=== PATIENT | female | born 1955 | race Caucasian/White ===

== ENCOUNTER 2018-05-25 17:55 | Inpatient (IN) | payer MEDICARE, OTHER, MEDICAID ==
[2018-05-25] MEDS: KETOROLAC 30 MG INJ IM (19:56)
[2018-05-25] MEDS: LORAZEPAM 0.5 MG TAB PO (20:10)
[2018-05-25] MEDS: morphine 4 MG/ML VIAL IV (21:44)
[2018-05-25] MEDS: ONDANSETRON 4 MG INJ IV (21:44)
[2018-05-25] MEDS: SOD CHLORIDE 0.9% 500 ML IV (21:45)
[2018-05-25 22:32] LABS: ADD MAN DIFF? NO
[2018-05-25 22:37] LABS: WHITE BLOOD COUNT 11.1 10^3/ul (4.8-10.8)
[2018-05-25 22:37] LABS: BASOPHILS % 0.2 % (0.0-2.0); HEMATOCRIT 33.9 % (37.0-47.0); HEMOGLOBIN 11.3 g/dl (12.0-16.0); LYMPHOCYTES # 0.8 10^3/ul (0.8-2.9); LYMPHOCYTES % 6.8 % (15.0-51.0); MEAN CORPUSCULAR HEMOGLOBIN 29.3 pg (29.0-33.0); MEAN CORPUSCULAR HGB CONC 33.3 g/dl (32.0-37.0); MEAN CORPUSCULAR VOLUME 87.8 fl (82.0-101.0); MEAN PLATELET VOLUME 8.8 fl (7.4-10.4); MONOCYTE # 0.4 10^3/ul (0.3-0.9); MONOCYTES % 3.2 % (0.0-11.0); NEUTROPHIL # 9.9 10^3/ul (1.6-7.5); NEUTROPHILS % 89.4 % (39.0-77.0); PLATELET COUNT 227 10^3/UL (140-415); RED BLOOD COUNT 3.86 10^6/ul (4.20-5.40); RED CELL DISTRIBUTION WIDTH 11.8 % (11.5-14.5)
[2018-05-25 22:54] LABS: ALANINE AMINOTRANSFERASE 24 IU/L (13-69); ALBUMIN 4.1 g/dl (3.3-4.9); ALBUMIN/GLOBULIN RATIO 1.36; ALKALINE PHOSPHATASE 71 IU/L (42-121); ANION GAP 11 (5-13); ASPARTATE AMINO TRANSFERASE 29 IU/L (15-46); BILIRUBIN,INDIRECT 0.4 mg/dl (0-1.1); BILIRUBIN,TOTAL 0.4 mg/dl (0.2-1.3); BLOOD UREA NITROGEN 17 mg/dl (7-20); CALCIUM 8.8 mg/dl (8.4-10.2); CARBON DIOXIDE 26 mmol/L (21-31); CHLORIDE 103 mmol/L (97-110); CREATININE 0.38 mg/dl (0.44-1.00); Estimated GFR > 60 mL/min (>60); GLUCOSE 123 mg/dl (70-220); LIPASE 90 U/L (23-300); POTASSIUM 3.4 mmol/L (3.5-5.1); SODIUM 140 mmol/L (135-144); TOTAL PROTEIN 7.1 g/dl (6.1-8.1)
[2018-05-25 23:02] LABS: INR 1.12; PROTIME 14.5 Sec (11.9-14.9); PT RATIO 1.1
[2018-05-25 23:03] LABS: PARTIAL THROMBOPLASTIN TIME 26.8 Sec (23.0-35.0)
[2018-05-26] MEDS ORDERED: traMADol 50 MG TAB PO (00:30)
[2018-05-26] MEDS ORDERED: ACETAMINOPHEN 325 MG TAB PO (00:30)
[2018-05-26] MEDS ORDERED: HYDROCODONE/APAP (5/325) TAB PO (00:30)
[2018-05-26] MEDS ORDERED: NACL 0.9% 3 ML SYG IV (00:30)
[2018-05-26] MEDS ORDERED: ONDANSETRON 4 MG INJ IV (00:30)
[2018-05-26] MEDS ORDERED: GLUCOSE GEL 15 GRAM TUBE BUCCAL (01:00)
[2018-05-26] MEDS ORDERED: GLUCOSE GEL 15 GRAM TUBE PO ×2 (01:00)
[2018-05-26] MEDS ORDERED: DEXTROSE 50% 50 ML SYRINGE IV ×2 (01:00)
[2018-05-26] MEDS ORDERED: GLUCAGON 1 MG INJ IM (01:00)
[2018-05-26] MEDS: HYDROCODONE/APAP (5/325) TAB PO ×4 (01:15→12:08)
[2018-05-26] MEDS: ACCU-CHEK XX (02:00)
[2018-05-26] MEDS: PANTOPRAZOLE (EC) 40 MG TAB PO (05:08)
[2018-05-26 05:38] LABS: ADD MAN DIFF? NO
[2018-05-26 05:44] LABS: WHITE BLOOD COUNT 8.5 10^3/ul (4.8-10.8)
[2018-05-26 05:44] LABS: BASOPHILS % 0.4 % (0.0-2.0); EOSINOPHILS % 0.1 % (0.0-7.0); HEMATOCRIT 32.4 % (37.0-47.0); HEMOGLOBIN 10.8 g/dl (12.0-16.0); LYMPHOCYTES # 1.9 10^3/ul (0.8-2.9); LYMPHOCYTES % 22.5 % (15.0-51.0); MEAN CORPUSCULAR HEMOGLOBIN 29.3 pg (29.0-33.0); MEAN CORPUSCULAR HGB CONC 33.3 g/dl (32.0-37.0); MEAN CORPUSCULAR VOLUME 87.8 fl (82.0-101.0); MEAN PLATELET VOLUME 9.3 fl (7.4-10.4); MONOCYTE # 0.6 10^3/ul (0.3-0.9); MONOCYTES % 7.3 % (0.0-11.0); NEUTROPHIL # 5.9 10^3/ul (1.6-7.5); NEUTROPHILS % 69.3 % (39.0-77.0); PLATELET COUNT 226 10^3/UL (140-415); RED BLOOD COUNT 3.69 10^6/ul (4.20-5.40); RED CELL DISTRIBUTION WIDTH 11.9 % (11.5-14.5)
[2018-05-26] MEDS ORDERED: HYDROmorphONE 1 MG/ML SYG IV (06:00)
[2018-05-26 06:28] LABS: ALANINE AMINOTRANSFERASE 18 IU/L (13-69); ALBUMIN 3.8 g/dl (3.3-4.9); ALBUMIN/GLOBULIN RATIO 1.35; ALKALINE PHOSPHATASE 59 IU/L (42-121); ANION GAP 10 (5-13); ASPARTATE AMINO TRANSFERASE 25 IU/L (15-46); BILIRUBIN,INDIRECT 0.6 mg/dl (0-1.1); BILIRUBIN,TOTAL 0.6 mg/dl (0.2-1.3); BLOOD UREA NITROGEN 17 mg/dl (7-20); CALCIUM 8.6 mg/dl (8.4-10.2); CARBON DIOXIDE 28 mmol/L (21-31); CHLORIDE 102 mmol/L (97-110); CHOL/HDL RATIO 3.1 RATIO; CHOLESTEROL 193 mg/dl (100-200); CREATININE 0.43 mg/dl (0.44-1.00); Estimated GFR > 60 mL/min (>60); GLUCOSE 102 mg/dl (70-220); HDL CHOLESTEROL 62 mg/dl (35-98); LDL CHOLESTEROL,CALCULATED 114 mg/dl; MAGNESIUM 1.7 mg/dl (1.7-2.5); PHOSPHORUS 4.6 mg/dl (2.5-4.9); POTASSIUM 3.2 mmol/L (3.5-5.1); SODIUM 140 mmol/L (135-144); TOTAL PROTEIN 6.6 g/dl (6.1-8.1); TRIGLYCERIDES 85 mg/dl (0-149)
[2018-05-26] MEDS ORDERED: INSULIN ASPART [NOVOLOG] 3 ML PEN SC (07:50)
[2018-05-26] MEDS: ATENOLOL 25 MG TAB PO (08:47)
[2018-05-26] MEDS: AMLODIPINE 10 MG TAB PO (09:00)
[2018-05-26] MEDS: ESCITALOPRAM 10 MG TAB PO (09:00)
[2018-05-26] MEDS: FUROSEMIDE 20 MG TAB PO (09:00)
[2018-05-26] MEDS: SOLIFENACIN 5 MG TAB PO (09:00)
[2018-05-26] MEDS: DICLOFENAC (EC) 75 MG TAB PO (09:00)
[2018-05-26] MEDS: LISINOPRIL 20 MG TAB PO (09:00)
[2018-05-26] MEDS: HEPARIN 5,000 UNIT/1 ML VIAL SC (09:00)
[2018-05-26 09:04] LABS: HEMOGLOBIN A1C 5.1 % (0-5.9)
[2018-05-26] MEDS ORDERED: POTASSIUM CHLORIDE (SR) 20 MEQ TAB PO (12:13)
[2018-05-26] MEDS ORDERED: ATORVASTATIN 10 MG TAB PO (21:00)
[2018-05-26] MEDS ORDERED: ZOLPIDEM 5 MG TAB PO (21:00)
== END 2018-05-26 12:31 | disposition home or self-care (01) | DRG 563 ==
LOC: MS1 21:47 → E/R 17:55
DX: S42.212A Unspecified displaced fracture of surgical neck of left humerus, initial encounter for closed fracture (principal); I10 Essential (primary) hypertension; E78.5 Hyperlipidemia, unspecified; E87.6 Hypokalemia; W18.30XA Fall on same level, unspecified, initial encounter
CPT/HCPCS: 36415; 71045; 72170; 73030; 73200; 80053; 80061; 83036; 83690; 83735; 84100; 85025; 85610; 85730; 96372; 96374; 96375; 99285-25